=== PATIENT | female | born 1970 | race Caucasian/White ===

== ENCOUNTER 2019-12-07 22:47 | Emergency (ER) | payer BC, SELFPAY ==
--- NOTE | ~2019-12-07 | XR_ITS ---
EXAMINATION: XR chest 2V DATE: 12/07/2019 23:37 INDICATION: This of breath, cough and fever TECHNIQUE: PA and lateral views of the chest were obtained. COMPARISON: None FINDINGS: The lungs are clear with no focal airspace opacities, pulmonary edema, pleural effusion or pneumothor ax. The cardiomediastinal silhouette is normal. Tiny ringlike biopsy marker at the lateral left breas t. Visualized bones and soft tissues are unremarkable. IMPRESSION: 1. No acute cardiopulmonary disease. Reviewed, dictated and finalized at location A. [employer] [place]
[2019-12-07 22:51] VITALS: BP 122/84; PULSE 105; RESP 18; TEMP 37.3; O2SAT 99
--- NOTE | 2019-12-07 23:04 | ED.FEVER ---
HPI - Fever General Chief Complaint: Fever <Roshan Luther MD - Last Filed: 12/07/19 23:53> Stated Complaint: Fever, cough, bodyaches <Roshan Luther MD - Last Filed: 12/07/19 23:53> Time Seen by Provider: 12/07/19 23:02 <Roshan Luther MD - Last Filed: 12/07/19 23:53> Source: patient and RN notes reviewed <Roshan Luther MD - Last Filed: 12/07/19 23:53> Mode of arrival: other <Roshan Luther MD - Last Filed: 12/07/19 23:53> Limitations: no limitations <Roshan Luther MD - Last Filed: 12/07/19 23:53> History of Present Illness HPI Narrative: Pt is a 49 y/o female who presents a fever that began on Sunday (12/05/19) night. Pt is a high school guidance counselor and she notes that she sent a child home with a fever of 104 degree fever on Sunday (12/05/19). She notes that she has had to send kids home with Influenza A and Influenza B. Pt notes that she took Ibuprofen and Excedrin earlier today, but with no relief of her sx. Pt also reports chills, [facility], diaphoresis, body aches, and nausea, but denies sore throat, nasal discharge, and vomiting. <Roshan Luther MD - Last Filed: 12/07/19 23:53> MD elicited complaint: fever <Roshan Luther MD - Last Filed: 12/07/19 23:53> Onset (ago): day(s) (2) <Roshan Luther MD - Last Filed: 12/07/19 23:53> Relieving factors: nothing <Roshan Luther MD - Last Filed: 12/07/19 23:53> Associated symptoms: chills, headache, nausea and other (diaphoresis, body aches) <Roshan Luther MD - Last Filed: 12/07/19 23:53> Treatments prior to arrival fever: ibuprofen and other (Excedrin) <Roshan Luther MD - Last Filed: 12/07/19 23:53> Related Data Home Medications: Home Medications Medication Instructions Recorded Confirmed progesterone micronized mg 12/07/19 <Roshan Luther MD - Last Filed: 12/07/19 23:53> Allergies/Adverse Reactions: Allergies Allergy/AdvReac Type Severity Reaction Status Date / Time No Known Allergies Allergy Unknown Verified 12/07/19 23:09 <Roshan Luther MD - Last Filed: 12/07/19 23:53> Review of Systems Review of Systems: All systems reviewed & are unremarkable except as noted in HPI and below <Roshan Luther MD - Last Filed: 12/07/19 23:53> Constitutional: Constitutional: Reports body ache(s) and Reports fever(s) <Roshan Luther MD - Last Filed: 12/07/19 23:53> ENT: Denies nasal discharge and Denies sore throat <Roshan Luther MD - Last Filed: 12/07/19 23:53> Cardiovascular: Cardiovascular: Reports other (diaphoresis) <Roshan Luther MD - Last Filed: 12/07/19 23:53> Gastrointestinal: Gastrointestinal: Reports nausea and Denies vomiting <Roshan Luther MD - Last Filed: 12/07/19 23:53> Neurologic: Reports headache(s) <Roshan Luther MD - Last Filed: 12/07/19 23:53> [facility] Past Medical History Medical History: Medical History (Updated 12/08/19 @ 01:23 by Twyla Lan MD) Heel fracture right Wrist fracture right <Roshan Luther MD - Last Filed: 12/07/19 23:53> Surgical History Surgical History: Surgical History (Updated 12/07/19 @ 23:15 by Breonna Moon) No history of previous surgery <Roshan Luther MD - Last Filed: 12/07/19 23:53> Social History Social History: Social History (Updated 12/07/19 @ 23:16 by Breonna Moon) Smoking status: Current some day smoker Tobacco type: cigarettes Gender identity (if verbalized by the patient): Female <Roshan Luther MD - Last Filed: 12/07/19 23:53> Exam Const: General: ill appearing other (mildly) and other (wearing a mask) <Roshan Luther MD - Last Filed: 12/07/19 23:53> Nutritional Appearance: well nourished <Roshan Luther MD - Last Filed: 12/07/19 23:53> Orientation/consciousness: patient oriented x3 (alert) and Other orientation findings (Alert) <Roshan Luther MD - Last Filed: 12/07/19 23:53> Limitations: no limitations <Roshan Luther MD - Last Filed: 12/07/19 23:53> HENMT: Head: jameso
[2019-12-07] MEDS: LACTATED RINGERS 1,000 ML 999 ML IV CONT (23:25)
[2019-12-07] MEDS: KETOROLAC 30 MG/ML VIAL (*BKC) IV PUSH (23:25)
[2019-12-07] MEDS: PROCHLORPERAZINE EDISYLATE 10 MG/2 ML VIAL 5 MG IV PUSH (23:29)
[2019-12-07 23:38] LABS: Basophils Percent Auto 0.4 % (0.2-1.2); Eosinophils Percent Auto 0.3 % (0-4.4); Hematocrit 35.7 % (37.0-47.0); Hemoglobin 12.1 g/dL (12.0-15.0); Immature Granulocyte Absolute 0.03 K/mm3 (0.00-0.031); Immature Granulocyte Percent A 0.3 % (0-0.5); Lymphocytes Absolute Auto 0.52 K/mm3 (0.9-3.2); Lymphocytes Percent Auto 4.8 % (18.3-44.2); Mean Corpuscular HGB Conc 33.9 g/dl (32-36); Mean Corpuscular Hemoglobin 32.6 pg (26-34); Mean Corpuscular Volume 96.2 fl (80-100); Mean Platelet Volume 9.6 fl (7.4-10.4); Monocytes Percent Auto 9.6 % (2.6-8.5); Neutrophils Absolute Auto 9.2 K/mm3 (1.3-6.7); Neutrophils Percent Auto 84.6 % (45.5-73.1); Platelet Count Result 262 k/mm3 (150-375); Red Blood Count 3.71 M/mm3 (4.2-5.4); Red Cell Distribution Width 12.4 % (11.5-14.5); White Blood Count 10.8 K/mm3 (4.5-10.0)
[2019-12-08 00:13] LABS: CRP 23.7 mg/dL (<1.0)
[2019-12-08] MEDS: LACTATED RINGERS 1,000 ML 999 ML IV CONT (00:46)
[2019-12-08 00:49] VITALS: BP 95/56; PULSE 86; RESP 20; TEMP 36.7; O2SAT 98
[2019-12-08 01:18] LABS: Add Urine Microscopic? YES; Appearance Urine Cloudy (Clear); Bacteria Urine 2+ /hpf; Bilirubin Urine Negative (Negative); Blood Urine 1+ (Negative); Color Urine Yellow (Yellow); Glucose Urine UA Negative (Negative); Ketones Urine Trace mg/dL (Negative); Leukocyte Esterase Ur 2+ LEU/UL (Negative); Mucus Urine Rare /lpf; Nitrate Urine Negative (Negative); Protein Urine Negative (Negative); Specific Grav Ur 1.011 (1.001-1.035); Squamous Epithelial Cell Urine Many /hpf (Few); Urobilinogen Urine Negative mg/dL (<2.0); WBC Urine 31-50 /hpf
[2019-12-08 01:58] VITALS: BP 101/68; PULSE 88; RESP 20; O2SAT 100
== END 2019-12-08 02:00 | disposition home or self-care (01) ==
PROVIDERS: Emergency Medicine; Emergency Provider Emergency Medicine; PCP Family Medicine Adolescent Medicine
DX: N30.00 Acute cystitis without hematuria (principal); F17.210 Nicotine dependence, cigarettes, uncomplicated
CPT/HCPCS: 36415; 71046; 81001; 85025; 86140; 87077; 87086; 87088; 87186; 87804; 96361; 96374; 96375; 99284; J0780; J1200; J1885; J7120

== ENCOUNTER 2021-07-16 14:38 | Emergency (ER) | payer BC, SELFPAY ==
--- NOTE | ~2021-07-16 | XR_ITS ---
XR chest 2V DATE: 07/16/2021 15:13 INDICATION: Shortness of breath. Hypertension. TECHNIQUE: AP and lateral views COMPARISON: 12/07/2019 PA and lateral chest FINDINGS: Normal heart size. No hilar or mediastinal enlargement. No pulmonary infiltrate or consol idation, pulmonary vascular congestion or pleural effusion or pneumothorax. IMPRESSION: No active cardiopulmonary disease Reviewed, dictated and finalized at location A.
[2021-07-16 14:39] VITALS: BP 144/77; PULSE 98; RESP 24; TEMP 36.5; O2SAT 97
[2021-07-16 14:46] VITALS: PULSE 125
--- NOTE | 2021-07-16 14:46 | ECG_ITS ---
Measurements Intervals [place] Rate: 126 P: 70 PA: 122 QRS: 91 QRSD: 97 T: 66 QT: 309 QTc: 447 Interpretive Statements SINUS TACHYCARDIA INCOMPLETE RIGHT BUNDLE BRANCH BLOCK BASELINE ARTIFACT- I, II, III, AVR, AVL, AVF, V1-V6 ABNORMAL ECG Electronically Signed On 07-16-2021 20:10:58 CDT by Chin Dubose D.O.
[2021-07-16 14:50] VITALS: O2SAT 100
--- NOTE | 2021-07-16 14:57 | ED.CHESTPAIN ---
HPI - Chest Pain General Chief Complaint: Chest Pain Stated Complaint: CHEST PAIN, HIGH BLOOD PRESSURE Time Seen by Provider: 07/16/21 14:48 Source: patient Mode of arrival: ambulatory Limitations: no limitations History of Present Illness HPI narrative: This is a 51 year old female that presents to the ER for chest pain since this morning. Reports the pain is a dull ache. Intermittently sharp. Associated with shortness of breath. Reports she was feeling anxious and like she was having a panic attack. Reports yesterday she was feeling dizzy at work and they took her blood pressure and it was elevated. Denies fever or cough. Related Data Home Medications Medication Instructions Recorded Confirmed progesterone micronized mg 12/07/19 Allergies Allergy/AdvReac Type Severity Reaction Status Date / Time No Known Allergies Allergy Unknown Verified 12/07/19 23:09 Review of Systems Review of Systems: CONSTITUTIONAL: Denies fever CARDIOVASCULAR: Reports chest pain. Denies edema. RESPIRATORY: Reports dyspnea. Denies cough PSYCHIATRIC: Reports anxiety All systems reviewed & are unremarkable except as noted in HPI and below PMFSH Past Medical History Medical History (Updated 07/16/21 @ 18:43 by Elaine Copeland PA-C) Heel fracture right Wrist fracture right Surgical History Surgical History (Updated 12/07/19 @ 23:15 by Breonna Moon) No history of previous surgery Social History Social History (Updated 12/07/19 @ 23:16 by Breonna Moon) Smoking status: Current some day smoker Tobacco type: cigarettes Gender identity (if verbalized by the patient): Female Exam Narrative: GENERAL: Well-appearing, well-nourished, anxious HEAD: Normocephalic, atraumatic. EYES: EOMI. ENT: Nares clear, no rhinorrhea or epistaxis. Mucous membranes moist. Oropharynx without tonsillar hypertrophy exudate or other lesions. CHEST: Clear to auscultation. No respiratory distress. No wheezes rales or rhonchi. Tender to palpation of the left, anterior, upper chest wall HEART: Regular rate and rhythm. No murmur heard. Normal peripheral pulses. EXTREMITIES: Normal range of motion. No edema. SKIN: Warm, dry, no rash. NEURO: No focal deficits. Alert and oriented x3. PSYCH: Anxious Course Vital Signs Vital signs: Vital Signs Temperature 97.7 F 07/16/21 14:39 Pulse Rate 98 07/16/21 14:39 Respiratory Rate 24 H 07/16/21 14:39 Blood Pressure 144/77 H 07/16/21 14:39 Pulse Oximetry 97 07/16/21 14:39 Temperature 97.7 F 07/16/21 14:39 Pulse Rate 86 07/16/21 17:06 Respiratory Rate 15 07/16/21 17:06 Blood Pressure 139/92 H 07/16/21 17:06 Pulse Oximetry 100 07/16/21 17:06 MDM - Chest Pain MDM Narrative Medical decision making narrative: Patient presents to the emergency department for left-sided chest pain since this morning. Pain is intermittent and achy in nature. Patient is tender palpation in the area. She reports relief with Tylenol and Toradol. She was also anxious on arrival. Given a dose of Ativan with improvement. Her vitals are stable. Oxygen saturation has remained normal on room air. CBC is without leukocytosis. Does show mild hemoconcentration. Patient hydrated with IV fluids in the ED. Chest x-ray without acute cardiopulmonary abnormality. EKG with nonspecific ST changes. Her baseline and 3-hour troponin are negative. Her heart score is a 3. Patient is stable and felt appropriate for further outpatient evaluation. Instructed to have close follow-up with her primary doctor. She was given warnings to return to the ER Lab Data Attestation: I reviewed the patient's lab results. Result diagrams: 07/16/21 15:05 07/16/21 15:05 Labs: Lab Results 07/16/21 07/16/21 07/16/21 Range/Units 15:05 15:05 15:05 WBC 6.6 (4.5-10.0) K/mm3 RBC 4.46 (4.2-5.4) M/mm3 Hgb 15.3 H D (12.0-15.0) g/dL Hct 43.3 (37.0-47.0) % MCV 97.1 (80-1
[2021-07-16] MEDS: ASPIRIN 81 MG CHEWABLE TABLET 324 MG PO (15:18)
[2021-07-16] MEDS: LORazepam INJ (*CRX) 2 MG/ML VIAL 0.5 MG IV PUSH (15:18)
[2021-07-16] MEDS: SODIUM CHLORIDE 0.9% IV 1,000 ML 999 ML IV CONT (15:19)
[2021-07-16 15:27] LABS: Basophils Absolute Auto 0.1 K/mm3 (0.0-0.1); Basophils Percent Auto 0.9 % (0.2-1.2); Eosinophils Absolute Auto 0.2 K/mm3 (0-0.3); Eosinophils Percent Auto 2.4 % (0-4.4); Hematocrit 43.3 % (37.0-47.0); Hemoglobin 15.3 g/dL (12.0-15.0); Immature Granulocyte Absolute 0.02 K/mm3 (0.00-0.031); Immature Granulocyte Percent A 0.3 % (0-0.5); Lymphocytes Percent Auto 22.8 % (18.3-44.2); Mean Corpuscular HGB Conc 35.3 g/dl (32-36); Mean Corpuscular Hemoglobin 34.3 pg (26-34); Mean Corpuscular Volume 97.1 fl (80-100); Mean Platelet Volume 9.3 fl (7.4-10.4); Monocytes Absolute Auto 0.6 K/mm3 (0.1-0.6); Monocytes Percent Auto 8.6 % (2.6-8.5); Neutrophils Absolute Auto 4.3 K/mm3 (1.3-6.7); Platelet Count Result 343 k/mm3 (150-375); Red Blood Count 4.46 M/mm3 (4.2-5.4); Red Cell Distribution Width 12.5 % (11.5-14.5); White Blood Count 6.6 K/mm3 (4.5-10.0)
[2021-07-16 15:34] LABS: Anion Gap 12 mmol/L (8-16); Blood Urea Nitrogen 5 mg/dL (7-17); Calcium 9.7 mg/dL (8.4-10.2); Carbon Dioxide 24 mmol/L (22-30); Chloride 107 mmol/L (98-107); Estimated CRCL calculation 87 ml/min; Estimated Glomerular Filt Rate > 60; Glucose 115 mg/dL (65-110); Potassium 3.4 mmol/L (3.4-5.0); Sodium 143 mmol/L (137-145)
[2021-07-16 15:40] LABS: INR 0.8; Prothrombin Time 11.1 Seconds (11.1-14.7)
[2021-07-16 15:41] LABS: Partial Thromboplastin Time 26.1 SECONDS (22.3-36.8)
[2021-07-16 15:46] LABS: Troponin I < 0.012 ng/mL (0.000-0.034)
[2021-07-16 15:49] LABS: D Dimer 0.27 ug/mL (<0.48)
[2021-07-16 15:53] VITALS: BP 131/96; PULSE 97; RESP 20; O2SAT 98
[2021-07-16 17:06] VITALS: BP 139/92; PULSE 86; RESP 15; O2SAT 100
[2021-07-16] MEDS: KETOROLAC 30 MG/ML VIAL (*BKC) IV PUSH (17:06)
[2021-07-16] MEDS: ONDANSETRON INJ 4 MG/2 ML VIAL IV PUSH (17:06)
[2021-07-16 18:21] LABS: Troponin I < 0.012 ng/mL (0.000-0.034)
[2021-07-16 19:18] VITALS: BP 117/90; PULSE 78; RESP 16; O2SAT 100
== END 2021-07-16 19:19 | disposition home or self-care (01) ==
PROVIDERS: Emergency Provider Emergency Medicine; PCP Family Medicine Adolescent Medicine
DX: R07.89 Other chest pain (principal); F17.210 Nicotine dependence, cigarettes, uncomplicated; R00.0 Tachycardia, unspecified; I45.10 Unspecified right bundle-branch block
CPT/HCPCS: 36415; 71046; 80048; 81025; 84484; 85025; 85380; 85610; 85730; 93005; 96361; 96365; 96375; 99284; A9270; J0131; J1885; J2060; J2405; J7030

== ENCOUNTER 2021-11-02 18:24 | Emergency (ER) | payer BC, SELFPAY ==
--- NOTE | 2021-11-02 19:08 | PC.NURSE ---
182-- pt name called and no response from the waiting room -- pt left without being seen or triage.
== END 2021-11-02 19:08 | disposition left against medical advice (07) ==
DX: Z53.21 Procedure and treatment not carried out due to patient leaving prior to being seen by health care provider (principal)
CPT/HCPCS: 99199

== ENCOUNTER 2022-08-26 17:50 | Emergency (ER) | payer BC, SELFPAY ==
--- NOTE | ~2022-08-26 | XR_ITS ---
EXAM: XR ankle RT min 3V DATE: 08/26/2022 18:15 HISTORY: TWISTED RT ANKLE, LATERAL PAIN . COMPARISON: 05/04/2013. FINDINGS: Decreased mineralization. Ossified fragment/body adjacent to the lateral talar process. No obvious distal fibular or talar fracture. Old anterior calcaneal process fracture. No lytic or blast ic lesion. Joint spaces are maintained. No erosion or periosteal change. Lateral soft tissue swelling . IMPRESSION: Small ossific fragment laterally may represent an avulsion fragment without a clear donor site versus old fracture fragment. Reviewed, dictated and finalized at location K.
[2022-08-26 18:02] VITALS: BP 113/71; PULSE 100; RESP 16; TEMP 37.2; O2SAT 100
--- NOTE | 2022-08-26 18:07 | ED.LOWEXIN ---
HPI - Extremity Injury (Lower) General Chief Complaint: Extremity Injury, Lower Stated Complaint: injury to right ankle Time Seen by Provider: 08/26/22 18:05 Source: patient Mode of arrival: ambulatory Limitations: no limitations History of Present Illness HPI Narrative: Ms. Stanford is a 52-year-old female patient presenting to the clinic today with complaints of injury to the right ankle. She reports that she stepped in [place] and twisted her right ankle. She has pain over the lateral ankle as well as to the medial ankle. She is unable to bear weight on it due to the pain Related Data Home Medications Medication Instructions Recorded Confirmed topiramate 25 mg tablet mg 08/26/22 ursodiol 250 mg tablet mg 08/26/22 08/26/22 Allergies Allergy/AdvReac Type Severity Reaction Status Date / Time No Known Allergies Allergy Unknown Verified 08/26/22 18:59 Review of Systems Review of Systems: Pertinent positives per HPI. Patient denies any fever, chills, rash, headache, visual changes, dizziness, cough, runny nose, sore throat, shortness of breath, chest pain, palpitations, nausea, vomiting, diarrhea, constipation, abdominal pain, or any urinary issues. [facility] Past Medical History Medical History Heel fracture right Wrist fracture right Surgical History Surgical History No history of previous surgery Social History Social History Smoking status: Current some day smoker Tobacco type: cigarettes Gender identity (if verbalized by the patient): Female Comments At the time of my signature, I reviewed and agree with the nursing past medical, surgical, social, and family history. There is no relevant family history pertinent to the patient complaint. Exam Narrative: General: Well-developed, well nourished, in no apparent distress Head: Normocephalic, atraumatic. Cardio: Regular rate and rhythm, s1 and s2 normal, no murmur appreciated. Resp: Clear to auscultation bilaterally, no rhonchi, rales, wheezing or rubs. Musculoskeletal: No deformity, midl redness and swelling to the right lateral ankle, tender to palpation over the medial and lateral ankle, pain with valgus/varus testing, no pain with plantar and dorsal flexion grossly normal range of motion, muscle strength strong and equal, peripheral pulse strong, no cyanosis, sitting in the wheelchair Course Course Emergency Course: Portions of this record may have been created with voice recognition software. Level of Care: Express Care Visit Vital Signs Vital signs: Vital Signs Temperature 37.2 C 08/26/22 18:02 Pulse Rate 100 08/26/22 18:02 Respiratory Rate 16 08/26/22 18:02 Blood Pressure 113/71 08/26/22 18:02 Pulse Oximetry 100 08/26/22 18:02 Oxygen Delivery Room Air 08/26/22 18:02 Temperature 37.2 C 08/26/22 18:02 Pulse Rate 100 08/26/22 18:02 Respiratory Rate 16 08/26/22 18:02 Blood Pressure 113/71 08/26/22 18:02 Pulse Oximetry 100 08/26/22 18:02 Oxygen Delivery Room Air 08/26/22 18:02 Vital signs reviewed MDM - Extremity Injury (Lower) MDM Narrative Medical decision making narrative: At the time of visit patient is resting comfortably on the exam table. X-ray was performed of the right ankle. Radiologist reports that she has a small ossified fragment laterally that may represent an avulsion fragment versus a old fracture fragment. Will place patient in an OCL splint and have her follow-up with orthopedic provider for further evaluation. Supportive measures were discussed with the patient she voiced understanding of discharge instructions and agrees to treatment plan Differential Diagnosis Differential diagnosis: Likely ankle sprain and strain and ankle fracture Imaging Data Radiologist's impre
== END 2022-08-26 19:00 | disposition home or self-care (01) ==
PROVIDERS: Emergency Provider Nurse Practitioner Family
DX: S93.401A Sprain of unspecified ligament of right ankle, initial encounter (principal); S96.911A Strain of unspecified muscle and tendon at ankle and foot level, right foot, initial encounter; X50.9XXA Other and unspecified overexertion or strenuous movements or postures, initial encounter; S82.891A Other fracture of right lower leg, initial encounter for closed fracture; F17.210 Nicotine dependence, cigarettes, uncomplicated
CPT/HCPCS: 29515; 73610; 99214; G0463

== ENCOUNTER 2024-03-26 13:48 | Outpatient (CLI) | payer OTHER, SELFPAY ==
--- NOTE | ~2024-03-26 | US_ITS ---
Limited Abdominal Sonogram: Real-time sonographic imaging of the right upper quadrant was performed. Clinical History: Abdominal pain Findings: The liver appears normal with no evidence of mass lesion or bile duct dilatation. Main por shea vein demonstrates normal direction of flow. The gallbladder is well distended, and contains a sma ll gallstone. The common bile duct measures 3 mm. The visualized pancreas, aorta, and IVC are unrema rkable. Impression: Cholelithiasis. Reviewed, dictated and finalized at location M. Impression: Cholelithiasis.
== END 2024-03-26 13:49 ==
PROVIDERS: PCP Nurse Practitioner Family; Visit Provider Nurse Practitioner Family
DX: K80.20 Calculus of gallbladder without cholecystitis without obstruction (principal); Z87.19 Personal history of other diseases of the digestive system
CPT/HCPCS: 76705